=== PATIENT | male | born 1955 | race Caucasian/White ===

== ENCOUNTER 2017-05-17 15:36 | Emergency (ER) | payer BC ==
[~2017-05-17] VITALS: Ht 182.9 cm; Wt 75.9 kg
[2017-05-17 15:39] VITALS: TEMP 98.3
[2017-05-17] MEDS ORDERED: HCTZ 25MG TAB25 MG PO (16:07)
[2017-05-17] MEDS ORDERED: PRIL40 PO (16:07)
[2017-05-17 16:10] LABS: BASO % 0.6 % (0.0-2.0); EOS # 0.1 (0.0-0.7); EOS % 1.3 % (0-4.0); GRAN # 5.4 (1.4-6.5); GRAN % 77.9 % (42.2-75.2); HEMATOCRIT 45.5 % (42.0-52.0); HEMOGLOBIN 15.7 g/dl (13.5-18.0); LYMPH # 0.7 (1.2-3.4); LYMPH % 10.4 % (20.0-51.0); MEAN CELL VOLUME 92 fl (80.0-100.0); MEAN CORPUSCULAR HEMOGLOBIN 32 pg (27.0-31.0); MEAN CORPUSCULAR HGB CONC 35 g/dl (33.0-37.0); MEAN PLATELET VOLUME 10.6 fl (7.4-10.4); MONO # 0.7 (0.1-0.6); MONO % 9.5 % (1.7-9.3); PLATELET COUNT 172 K/mm3 (130-400); RED BLOOD COUNT 4.93 M/mm3 (4.20-5.60); REDCELL DISTRIBUTION WIDTH-CV 11.5 % (11.5-14.5)
[2017-05-17 16:18] LABS: ALANINE AMINOTRANSFERASE 53 U/L (21-72); ALBUMIN 4.6 gm/dL (3.5-5.0); ALKALINE PHOSPHATASE 72 U/L (50-136); ANION GAP 9 mmol/L (7-16); AST,SGOT 34 U/L (15-37); BILIRUBIN,TOTAL 0.6 mg/dL (0.0-1.0); BLOOD UREA NITROGEN 16 mg/dL (9-20); CALCIUM 9.8 mg/dL (8.4-10.2); CARBON DIOXIDE 28 mmol/L (22-30); CHLORIDE 101 mmol/L (98-107); CREATININE, serum 0.89 mg/dL (0.66-1.25); GLUCOSE 114 mg/dL (74-106); LIPASE 99 U/L (23-300); POTASSIUM 3.9 mmol/L (3.4-5.0); SODIUM 138 mmol/L (137-145); TOTAL PROTEIN 7.6 gm/dL (6.4-8.2)
[2017-05-17 16:19] LABS: C-REACTIVE PROTEIN < 0.5 mg/dL (0.0-0.9)
[2017-05-17 16:28] LABS: TROPONIN-I < 0.012 ng/mL (0.000-0.034)
[2017-05-17] MEDS ORDERED: PROTONIX 40MG T40 MG PO (17:32)
[2017-05-17 17:45] VITALS: BP 118/75; PULSE 59
== END 2017-05-17 17:49 | disposition home or self-care (01) ==
LOC: COL.ER 15:36
PROVIDERS: Emergency Medicine
DX: R07.89 Other chest pain (principal); I10 Essential (primary) hypertension; K21.9 Gastro-esophageal reflux disease without esophagitis

== ENCOUNTER → 2019-12-26 | Outpatient (CLI) | payer BC ==
[2006-02-05 10:00] VITALS: TEMP 98.3
[~2019-12-26] MED LIST: HCTZ 25MG TAB25 MG PO; PRIL40 PO; PROTONIX 40MG T40 MG PO
== END ==
LOC: COL.VAS 13:45
DX: I34.0 Nonrheumatic mitral (valve) insufficiency (principal)

== ENCOUNTER → 2020-03-07 | Outpatient (CLI) | payer BC ==
[2006-02-05 10:00] VITALS: TEMP 98.3
== END ==
LOC: COL.VAS 12:40
DX: R60.0 Localized edema (principal); M79.662 Pain in left lower leg; M79.661 Pain in right lower leg; M79.89 Other specified soft tissue disorders

== ENCOUNTER → 2020-05-08 | Outpatient (CLI) | payer BC | LOC: COL.RAD 09:29 | DX: M47.816 Spondylosis without myelopathy or radiculopathy, lumbar region (principal); M48.061 Spinal stenosis, lumbar region without neurogenic claudication ==

== ENCOUNTER → 2023-07-14 | Outpatient (CLI) | payer BC ==
[2006-02-05 10:00] VITALS: TEMP 98.3
[~2023-07-14] MED LIST changes: +Iohexol 300 - 100 ML VIAL IV ONE; +NS 100 ML IV SCH
== END ==
LOC: COL.RAD 06:46
DX: K57.30 Diverticulosis of large intestine without perforation or abscess without bleeding (principal)
CPT/HCPCS: Q9967